=== PATIENT | male | born 1955 | race Caucasian/White ===

== ENCOUNTER 2018-06-14 07:19 | Day surgery (SDC) | payer BC ==
[2018-06-11 10:20] VITALS: BP 129/86
--- NOTE | 2018-06-11 10:34 | NUR ---
EKG Dr Reid reviewed EKG from 06/11/18, ok to proceed, no new orders
[2018-06-11 10:41] LABS: BASOPHILS % (AUTO) 0.9 % (0.0-5.0); EOSINOPHILS % (AUTO) 1.5 % (0.0-8.0); HEMATOCRIT 41.4 % (42-54); LYMPHOCYTES % (AUTO) 26.5 % (21.0-51.0); MEAN CORPUSCULAR HEMOGLOBIN 28.4 pg (27.0-33.0); MEAN CORPUSCULAR HGB CONC 32.7 g/dL (32.0-36.0); MEAN CORPUSCULAR VOLUME 86.8 fL (79-99); MONOCYTES % (AUTO) 9.4 % (3.0-13.0); NEUTROPHILS % (AUTO) 61.7 % (40.0-77.0); PLATELET COUNT (AUTO) 245 K/uL (130-400); RED BLOOD CELL COUNT(AUTO) 4.77 MIL/uL (4.50-6.20); RED CELL DISTRIBUTION WIDTH 14.8 % (11.0-15.5); WHITE BLOOD COUNT (AUTO) 6.4 K/uL (4.8-10.8)
[2018-06-11 10:44] LABS: APPEARANCE,URINE Clear (CLEAR); BILIRUBIN,URINE Negative (NEGATIVE); COLOR,URINE Yellow (YELLOW); GLUCOSE, URINE (UA) Negative (NEGATIVE); KETONES,URINE Negative (NEGATIVE); LEUKOCYTE ESTERASE ,URINE Negative (NEGATIVE); NITRATE,URINE Negative (NEGATIVE); OCCULT BLOOD,URINE Small (NEGATIVE); PROTEIN,URINE Negative (NEGATIVE)
[2018-06-11 10:48] LABS: CREATININE 1.2 mg/dL (0.5-1.5); POTASSIUM 5.2 mmol/L (3.5-5.1)
[2018-06-11 11:00] LABS: INR 1.02 (0.85-1.15); PROTHROMBIN TIME 10.7 SEC (9.6-11.6)
[2018-06-11 11:17] LABS: BACTERIA,URINE Rare /HPF (None Seen); SQUAMOUS EPITHELIAL CELL,UR Rare /HPF (0-2); WBC,URINE 0-1 /HPF (0-1)
--- NOTE | 2018-06-13 14:15 | NUR ---
NOTE ELEVATED K+ 5.2 WAS REPORTED TO [employer] NURSE, SHE HAS REPORTED TO DR MONTERO AND NO FURTHER ORDERS GIVEN.
[2018-06-14] VITALS (12 sets, daily range): BP systolic 103–136; BP diastolic 63–76
[~2018-06-14] VITALS: Ht 172.7 cm; Wt 123.6 kg
[~2018-06-14 07:19] MED LIST: CEFTRIAXONE SODIUM 1 GM IVP SCH
[2018-06-14] MEDS ORDERED: LACTATED RINGERS 1000ML 1,000 ML IV ONE (07:45)
[2018-06-14] MEDS ORDERED: APIX5TAB PO (07:52)
[2018-06-14] MEDS ORDERED: LOSA25TA41 PO (07:52)
[2018-06-14] MEDS ORDERED: SIMV40TA59 PO (07:52)
[2018-06-14] MEDS: CEFTRIAXONE SODIUM 1 GM ONE ×2 (07:57→10:25)
[2018-06-14] MEDS ORDERED: LIDOCAINE PF 2% 5ML ABBOJECT ONE (10:18)
[2018-06-14] MEDS ORDERED: FENTANYL CITRATE PF 50 MCG/1 ML 2ML VIAL ONE ×2 (10:18→11:07)
[2018-06-14] MEDS ORDERED: PROPOFOL 10 MG/ML 20ML VIAL IV ONE (10:18)
[2018-06-14] MEDS ORDERED: GLYCOPYRROLATE 1 MG/5 ML SYRINGE ONE (10:44)
[2018-06-14] MEDS ORDERED: IOHEXOL-350 50ML VIAL IV ONE (10:56)
--- NOTE | 2018-06-14 12:10 | NUR ---
RECEIVED AWAKE,ALERT NO COMPLAINTS,CALL [facility] IN REACH
--- NOTE | 2018-06-14 12:40 | NUR ---
ACCOMPANIED BACK TO BR,,,VOIDS WITH NO PROBLEM STATES,ONLY A LITTLE BIT OF BLOOD,ENCOURAGED TO DRINK PLENTY OF FLUIDS TOLERATES,AND ENCOURAGED TO AMBULATE ,DEEP BREATHE,VERBALIZES UNDERSTANDING
--- NOTE | 2018-06-14 12:55 | NUR ---
TO CAR VIA W/C,ACCOMPANIED BY
== END 2018-06-14 12:55 | disposition home or self-care (01) ==
LOC: DAH 07:19
PROVIDERS: ATTEND Urology
DX: N20.1 Calculus of ureter (principal); I10 Essential (primary) hypertension; Z98.890 Other specified postprocedural states; Z79.899 Other long term (current) drug therapy
CPT/HCPCS: 36415; 52005; 74018; 74420; 80048; 81001; 85025; 85610; 87088; 93005; A4218; A4358; A4600; C1758; C1769; J0696; J2001; J2704; J3010 ×2; J3490; J7120; Q9967

== ENCOUNTER → 2021-09-13 | Outpatient (CLI) | payer OTHER, SELFPAY ==
[~2021-09-13] MED LIST changes: +APIX5TAB PO; -CEFTRIAXONE SODIUM 1 GM IVP SCH; +LOSA25TA41 PO; +SIMV40TA59 PO
== END | disposition home or self-care (01) ==
LOC: RAH 12:49
PROVIDERS: ATTEND Internal Medicine Cardiovascular Disease
DX: Z13.6 Encounter for screening for cardiovascular disorders (principal); I51.5 Myocardial degeneration
CPT/HCPCS: 75571

== ENCOUNTER → 2024-09-19 | Outpatient (CLI) | payer BC, MEDICARE ==
--- NOTE | 2024-09-19 12:28 | HMCIMG ---
CHEST 2VWS HISTORY: Circulation COMPARISON: None FINDINGS: Frontal and lateral projections of the chest were obtained. There is no acute pulmonary infiltrates or failure. The heart is borderline enlarged. Aortic calcifications are seen. Degenerative changes are seen of the thoracolumbar spine. IMPRESSION: 1. No acute pulmonary infiltrates.
== END | disposition home or self-care (01) ==
LOC: RAH 10:28
DX: Z01.818 Encounter for other preprocedural examination (principal); M17.12 Unilateral primary osteoarthritis, left knee; I48.0 Paroxysmal atrial fibrillation; I70.0 Atherosclerosis of aorta; M47.815 Spondylosis without myelopathy or radiculopathy, thoracolumbar region
CPT/HCPCS: 71046; 87641